=== PATIENT | male | born 1995 | race African-American/Black ===

== ENCOUNTER 2016-10-18 11:33 | Emergency (ER) | payer OTHER ==
[~2016-10-18] VITALS: Ht 175.3 cm; Wt 92.9 kg
[2016-10-18] MEDS ORDERED: CIPROFLOXACIN H10 ML RIGHT EYE (12:59)
[2016-10-18 13:15] VITALS: BP 137/78
== END 2016-10-18 13:17 | disposition home or self-care (01) ==
LOC: EME 11:33
DX: H10.9 Unspecified conjunctivitis (principal)
CPT/HCPCS: 99281; 99284